=== PATIENT | male | born 1965 | race Asian ===

== ENCOUNTER 2018-11-04 20:34 | Emergency (ER) | payer OTHER ==
[~2018-11-04] VITALS: Ht 180.3 cm; Wt 81.6 kg
[2018-11-04 20:37] VITALS: Ht 180.3 cm; Wt 81.6 kg
[2018-11-04 21:41] VITALS: BP 135/87; PULSE 93; RESP 18
== END 2018-11-04 21:43 | disposition home or self-care (01) ==
LOC: FTE 20:34
DX: N50.1 Vascular disorders of male genital organs (principal); S30.22XA Contusion of scrotum and testes, initial encounter; X58.XXXA Exposure to other specified factors, initial encounter; Y92.9 Unspecified place or not applicable
CPT/HCPCS: 99282